=== PATIENT | male | born 1980 | race African-American/Black ===

== ENCOUNTER 2017-10-06 11:44 | Emergency (ER) | payer SELFPAY ==
[~2017-10-06] VITALS: Ht 175.3 cm; Wt 70.8 kg
[2017-10-06] MEDS ORDERED: KETOROLAC TROMETHAMINE 30 MG/ML VIAL IV STA (12:56)
[2017-10-06 13:18] LABS: BASOPHILS # (AUTO) 0.1 (0.0-0.1); BASOPHILS % 0.4 % (0.0-1.0); EOSINOPHILS # (AUTO) 0.1 (0.0-0.4); EOSINOPHILS % 0.7 % (0.0-6.0); HEMATOCRIT 42.1 % (38.2-49.6); HEMOGLOBIN 14.7 g/dL (14.0-18.0); LYMPHOCYTES # (AUTO) 2.9 (1.0-3.2); LYMPHOCYTES % 23.7 % (18.0-39.1); MEAN CORPUSCULAR HEMOGLOBIN 31.7 pg (28-32); MEAN CORPUSCULAR HGB CONC 34.9 g/dL (31-35); MEAN CORPUSCULAR VOLUME 90.9 fL (81-99); MONOCYTES # (AUTO) 0.9 (0.2-0.8); MONOCYTES % 7.4 % (4.4-11.3); NEUTROPHILS # (AUTO) 8.2 (2.1-6.9); NEUTROPHILS % 67.4 % (38.7-80.0); PLATELET COUNT 196 x10e3/uL (140-360); RED BLOOD COUNT 4.63 x10e6/uL (4.3-5.7); RED CELL DISTRIBUTION WIDTH 11.5 % (11.7-14.4)
--- NOTE | 2017-10-06 13:36 | Diagnostic Imaging Report ---
PROCEDURE:X-RAY ABDOMEN - KUB COMPARISON:None. INDICATIONS:HERNIA, NASEAU FINDINGS: BOWEL GAS PATTERN:Non-specific bowel gas pattern. No signs of pneumoperitoneum. CALCIFICATIONS:None significant. OTHER:Clear lung bases. No osseous abnormality. CONCLUSION: Nonobstructive bowel gas pattern. Dictated by: Jayce Small M.D. on 10/06/2017 at 13:39 Electronically approved by: Jayce Small M.D. on 10/06/2017 at 13:39
[2017-10-06 13:38] LABS: ALANINE AMINOTRANSFERASE 25 IU/L (0-55); ALBUMIN 3.7 g/dL (3.5-5.0); ALBUMIN/GLOBULIN RATIO 0.9 (0.8-2.0); ALKALINE PHOSPHATASE 78 IU/L (40-150); ANION GAP 9.7 mmol/L (8-16); BLOOD UREA NITROGEN 8 mg/dL (7-26); BUN/CREATININE RATIO 9 (6-25); CALCIUM 9.6 mg/dL (8.4-10.2); CARBON DIOXIDE 30 mmol/L (22-29); CHLORIDE 104 mmol/L (98-107); CREATININE, SERUM 0.92 mg/dL (0.72-1.25); EST GLOMERULAR FILTRATION RATE > 60 ML/MIN (60-); GLUCOSE 89 mg/dL (74-118); POTASSIUM 3.7 mmol/L (3.5-5.1); SODIUM 140 mmol/L (136-145)
--- NOTE | 2017-10-06 14:00 | Diagnostic Imaging Report ---
PROCEDURE:EXTREMITY ULTRASOUND COMPARISON:None. INDICATIONS:RIGHT GROIN PAIN TECHNIQUE:Color duplex Doppler ultrasound FINDINGS: Multiple lymph nodes are present in the right inguinal region, the largest of which measures 5.1 x 2 x 4.6 cm and demonstrates cortical hypervascularity. These nodes demonstrate a fatty hilum with nodular margins. The left inguinal region demonstrates nodes measuring up to 1.3 x 0.5 cm, with normal cortex and fatty hilum. CONCLUSION: Enlarged, irregular, hypervascular right inguinal lymphadenopathy. Wide differential diagnosis including reactive lymphadenopathy from regional infection, metastatic disease, or lymphoproliferative disorder. Dictated by: Robb Rae M.D. on 10/06/2017 at 14:02 Electronically approved by: Robb Rae M.D. on 10/06/2017 at 14:02
[2017-10-06] MEDS ORDERED: DOXYCYCLINE HYCLATE TABLET 100 MG TAB PO ONE (14:15)
[2017-10-06] MEDS ORDERED: DOXYCYCLINE HY100 MG PO (14:18)
[2017-10-06 14:24] LABS: CLARITY,URINE HAZY (CLEAR); COLOR,URINE AMBER (YELLOW); LEUKOCYTE ESTERASE ,URINE TRACE (NEGATIVE); NITRITE,URINE NEGATIVE (NEGATIVE)
[2017-10-06 14:25] LABS: BILIRUBIN,URINE NEGATIVE (NEGATIVE); KETONES,URINE NEGATIVE (NEGATIVE); PROTEIN,URINE DIPSTICK TRACE (NEGATIVE); URINE UROBILINOGEN 1 mg/dL (0.2 - 1)
[2017-10-06 14:39] LABS: EPITHELIAL CELLS,URINE FEW /LPF
[2017-10-06 14:42] LABS: BACTERIA,URINE FEW /HPF; MUCUS,URINE MODERATE (RARE)
== END 2017-10-06 14:45 | disposition home or self-care (01) ==
LOC: ER 11:44
DX: I88.8 Other nonspecific lymphadenitis (principal); R59.0 Localized enlarged lymph nodes
CPT/HCPCS: 36415; 74018; 76882; 80053; 81001; 85025; 99284; J1885